=== PATIENT | male | born 1960 | race Caucasian/White ===

== ENCOUNTER 2018-04-18 19:13 | Emergency (ER) | payer MEDICAID ==
[~2018-04-18] VITALS: Ht 180.3 cm; Wt 92.1 kg
[~2018-04-18 19:13] MED LIST: ASPI325 PO; FISH1000 PO; MULTIVITAMIN PO
== END 2018-04-18 19:52 | disposition home or self-care (01) ==
LOC: ER 19:13
DX: M25.561 Pain in right knee (principal); Z79.2 Long term (current) use of antibiotics; Z79.899 Other long term (current) drug therapy
CPT/HCPCS: 99282

== ENCOUNTER → 2022-06-14 | Outpatient (CLI) | payer BC | END | disposition home or self-care (01) | LOC: PLD 12:12 → LAB SHORT 12:12 | DX: L82.1 Other seborrheic keratosis (principal) | CPT/HCPCS: 88305 ==

== ENCOUNTER → 2023-01-30 | Outpatient (CLI) | payer BC ==
[2023-01-30 09:19] LABS: BASOPHILS ABSOLUTE AUTO 0.03 K/mm3 (0.00-0.23); BASOPHILS PERCENT AUTO 0 % (0-2); EOSINOPHILS ABSOLUTE AUTO 0.11 K/mm3 (0.00-0.68); EOSINOPHILS PERCENT AUTO 1 % (0-6); Hematocrit 50.7 % (37.0-53.0); Hemoglobin 17.1 g/dL (13.5-17.5); IMMATURE GRAN ABSOLUTE AUTO 0.04 K/mm3 (0.00-0.10); IMMATURE GRAN PERCENT AUTO 0 % (0-1); LYMPHOCYTES ABSOLUTE AUTO 1.78 K/mm3 (0.84-5.20); LYMPHOCYTES PERCENT AUTO 17 % (21-46); MONOCYTES ABSOLUTE AUTO 0.77 K/mm3 (0.16-1.47); MONOCYTES PERCENT AUTO 7 % (4-13); Mean Corpuscular HGB 30.1 pg (26.0-34.0); Mean Corpuscular HGB Conc 33.7 g/dL (31.5-36.5); Mean Corpuscular Volume 89 fL (80-100); Mean Platelet Volume 11.1 fL (9.1-12.4); NEUTROPHILS ABSOLUTE AUTO 7.78 K/mm3 (1.96-9.15); NEUTROPHILS PERCENT AUTO 74 % (41-73); Platelet Count 248 K/mm3 (150-400); RDW Coefficient Variation 13.3 % (11.7-14.2); RDW Standard Deviation 42.8 fL (35.1-46.3); Red Blood Cell Count 5.69 M/mm3 (4.30-5.90); White Blood Cell Count 10.51 K/mm3 (4.00-11.30)
[2023-01-30 09:36] LABS: Albumin, Blood 3.8 g/dL (3.4-5.0); Albumin/Globulin Ratio 1.1 (0.8-1.8); Bilirubin, Total 0.9 mg/dL (0.1-1.0); Bun/Creatinine Ratio 8.7 (12.0-20.0); Calcium, Blood 9.5 mg/dL (8.5-10.1); Creatinine, Blood 1.5 mg/dL (0.60-1.20); Globulin, Blood 3.5 g/dL (2.2-4.0); Potassium, Blood 4.3 mmol/L (3.5-5.5); Total Protein, Blood 7.3 g/dL (6.4-8.2)
== END | disposition home or self-care (01) ==
LOC: LAB SHORT 09:11 → LAB 09:11
PROVIDERS: Physician Assistant
DX: R07.9 Chest pain, unspecified (principal)
CPT/HCPCS: 80053; 83690; 84484; 85025; 85379

== ENCOUNTER → 2023-01-31 | Outpatient (CLI) | payer BC | END | disposition home or self-care (01) | LOC: LAB 10:52 → LAB SHORT 10:52 | DX: R07.9 Chest pain, unspecified (principal) | CPT/HCPCS: 84484 ==

== ENCOUNTER 2024-10-05 00:31 | Inpatient (IN) | payer SELFPAY ==
[~2024-10-05] VITALS: Ht 180.3 cm; Wt 99.8 kg
[2024-10-05] MEDS ORDERED: Aspirin 325 MG Tab PO ONE (00:55)
[2024-10-05] MEDS ORDERED: Ondansetron HCl 2 MG / ML 2ML Vial ONE (00:55)
[2024-10-05 01:04] LABS: BASOPHILS ABSOLUTE AUTO 0.05 K/mm3 (0.00-0.23); BASOPHILS PERCENT AUTO 0 % (0-2); EOSINOPHILS ABSOLUTE AUTO 0.13 K/mm3 (0.00-0.68); EOSINOPHILS PERCENT AUTO 1 % (0-6); Hematocrit 44.8 % (37.0-53.0); IMMATURE GRAN ABSOLUTE AUTO 0.08 K/mm3 (0.00-0.10); IMMATURE GRAN PERCENT AUTO 1 % (0-1); LYMPHOCYTES PERCENT AUTO 13 % (21-46); MONOCYTES ABSOLUTE AUTO 0.94 K/mm3 (0.16-1.47); MONOCYTES PERCENT AUTO 8 % (4-13); Mean Corpuscular HGB 29.5 pg (26.0-34.0); Mean Corpuscular HGB Conc 33.5 g/dL (31.5-36.5); Mean Corpuscular Volume 88 fL (80-100); Mean Platelet Volume 10.9 fL (9.1-12.4); NEUTROPHILS ABSOLUTE AUTO 8.92 K/mm3 (1.96-9.15); NEUTROPHILS PERCENT AUTO 77 % (41-73); Platelet Count 257 K/mm3 (150-400); RDW Coefficient Variation 13.2 % (11.7-14.2); RDW Standard Deviation 42.7 fL (35.1-46.3); Red Blood Cell Count 5.09 M/mm3 (4.30-5.90); White Blood Cell Count 11.62 K/mm3 (4.00-11.30)
[2024-10-05] MEDS ORDERED: Ondansetron HCl 2 MG / ML 2ML Vial IV ONE (01:05)
[2024-10-05] MEDS ORDERED: FentaNYL Citrate 50 MCG/ML 2 ML Injection IV ONE (01:10)
[2024-10-05 01:23] LABS: Albumin, Blood 3.5 g/dL (3.4-5.0); Albumin/Globulin Ratio 1.2 (0.8-1.8); Bilirubin, Total 0.3 mg/dL (0.1-1.0); Bun/Creatinine Ratio 9.5 (12.0-20.0); Calcium, Blood 8.7 mg/dL (8.5-10.1); Creatinine, Blood 1.26 mg/dL (0.60-1.20); Potassium, Blood 3.4 mmol/L (3.5-5.5); Total Protein, Blood 6.5 g/dL (6.4-8.2)
[2024-10-05] MEDS ORDERED: HYDROmorphone HCl/Pf 1MG SYR IV ONE ×2 (02:00→05:30)
[2024-10-05] MEDS ORDERED: MetroNIDAZOLE 500MG/NS 100 ml 100 ML IV ONE (05:30)
[2024-10-05] MEDS ORDERED: CefTRIAXone Sodium 1,000 MG in NS 50 ML IV ONE (05:30)
[2024-10-05] MEDS ORDERED: Naloxone HCl 0.4MG / ML 1ML Vial IV PRN (05:45)
[2024-10-05] MEDS ORDERED: HYDROmorphone HCl/Pf 1MG SYR IV PRN (05:45)
[2024-10-05] MEDS ORDERED: OxyCODONE HCL 5 MG TAB PO PRN (05:45)
[2024-10-05] MEDS ORDERED: FLU VACC TS2024-25(6MOS UP)/PF 45 MCG/0.5 ML SYRINGE IM ONE (05:45)
[2024-10-05] MEDS ORDERED: Ondansetron HCl 2 MG / ML 2ML Vial IV PRN (05:45)
[2024-10-05] MEDS ORDERED: Acetaminophen 325 MG TABLET PO PRN (05:50)
[2024-10-05] MEDS ORDERED: NS 1,000 ML IV SCH (06:00)
[2024-10-05] MEDS ORDERED: Potassium Chl 20MEQ/Water100ML 100 ML IV SCH (07:15)
[2024-10-05 08:02] VITALS: BP 176/94
[2024-10-05] MEDS ORDERED: Docusate Sodium 100 MG Cap PO SCH (09:00)
[2024-10-05] MEDS ORDERED: Lactobacil 2-S.Thermo-Bifido 1 1 Cap PO SCH (09:00)
[2024-10-05 10:55] VITALS: BP 150/75
[2024-10-05 14:41] VITALS: BP 168/90
[2024-10-05] MEDS ORDERED: MetroNIDAZOLE 500MG/NS 100 ml 100 ML IV SCH (16:00)
--- NOTE | 2024-10-05 17:17 | NUR ---
SHIFT SUMMARY POSSIBLE SURGERY TOMORROW. PT IS TOLERATING A CLEAR LIQUID DIET. PAIN MANAGED WITH DILAUDID. VSS, PT WAS HYPERTENSIVE THIS MORNING BUT BP HAS NOW IMPROVED. PT INDEPENDENT IN THE ROOM. HE USES HIS CALL LIGHT APPROPRIATELY.
[2024-10-05] MEDS ORDERED: NEBI5 PO (18:22)
[2024-10-05] MEDS ORDERED: OMEP20ER PO (18:24)
[2024-10-05] MEDS ORDERED: Famotidine 20 MG Tab PO PRN (18:30)
--- NOTE | 2024-10-05 18:30 | NUR ---
PAIN, NAUSEA, HOME MEDS PT REPORTED INCREASED PAIN, NAUSEA AND INDIGESTION AFTER CONSUMING A CLEAR LIQUID DINNER. PT EDUCATED THAT PO INTAKE CAN INCREASE THESE ISSUES WITH ACUTE CHOLECYSTITIS. PT ALSO REPORTED HE DID NOT TAKE HIS BYSTOLIC THIS AM OR HIS PRILOSEC. MEDICATIONS AND HOME DOSAGES ADDED TO MED REC AND DR. VERDUGO NOTIFIED OF SYMPTOMS AND NEED TO RESTART HOME MEDS. HOME MEDICATIONS RESTARTED PER DR. VERDUGO. PEPCID ORDERED PRN. PT GIVEN ZOFRAN AND TYLENOL WHICH IMPROVED NAUSEA AND PAIN. BEDSIDE REPORT GIVEN AND NOC RN NOTIFIED THAT DR. VERDUGO ORDERED PEPCID FOR INDEGESTIONG BUT PHARMACY STILL NEEDED TO APPROVE THE MEDICATION.
[2024-10-05 19:21] VITALS: BP 160/81
[2024-10-05] MEDS ORDERED: Carvedilol 3.125 MG Tab PO SCH (21:00)
[2024-10-06] VITALS (11 sets, daily range): BP systolic 118–155; BP diastolic 75–92
--- NOTE | 2024-10-06 04:42 | NUR ---
NOC SUMMARY- PT HAS BEEN NPO SINCE MIDNIGHT. PT HAS RESTED QUIETLY THROUGHOUT SHIFT. PT DENIES PAIN/ DISCOMFORT OR N/V. CALL LIGHT IN REACH.
[2024-10-06] MEDS ORDERED: Omeprazole 20 MG CapCR PO SCH (06:00)
[2024-10-06] MEDS ORDERED: CefTRIAXone Sodium 1,000 MG in NS 100 ML IV SCH (06:00)
[2024-10-06 06:56] LABS: BASOPHILS ABSOLUTE AUTO 0.04 K/mm3 (0.00-0.23); BASOPHILS PERCENT AUTO 0 % (0-2); EOSINOPHILS ABSOLUTE AUTO 0.13 K/mm3 (0.00-0.68); EOSINOPHILS PERCENT AUTO 1 % (0-6); Hematocrit 48.1 % (37.0-53.0); Hemoglobin 16.2 g/dL (13.5-17.5); IMMATURE GRAN ABSOLUTE AUTO 0.05 K/mm3 (0.00-0.10); IMMATURE GRAN PERCENT AUTO 0 % (0-1); LYMPHOCYTES ABSOLUTE AUTO 1.37 K/mm3 (0.84-5.20); LYMPHOCYTES PERCENT AUTO 10 % (21-46); MONOCYTES PERCENT AUTO 10 % (4-13); Mean Corpuscular HGB 29.8 pg (26.0-34.0); Mean Corpuscular HGB Conc 33.7 g/dL (31.5-36.5); Mean Corpuscular Volume 89 fL (80-100); Mean Platelet Volume 10.8 fL (9.1-12.4); NEUTROPHILS ABSOLUTE AUTO 10.83 K/mm3 (1.96-9.15); NEUTROPHILS PERCENT AUTO 79 % (41-73); Platelet Count 222 K/mm3 (150-400); RDW Coefficient Variation 13.4 % (11.7-14.2); RDW Standard Deviation 43.7 fL (35.1-46.3); Red Blood Cell Count 5.43 M/mm3 (4.30-5.90); White Blood Cell Count 13.72 K/mm3 (4.00-11.30)
[2024-10-06 07:19] LABS: Albumin, Blood 3.2 g/dL (3.4-5.0); Bilirubin, Total 1.3 mg/dL (0.1-1.0); Bun/Creatinine Ratio 10.3 (12.0-20.0); Calcium, Blood 8.6 mg/dL (8.5-10.1); Creatinine, Blood 1.16 mg/dL (0.60-1.20); Globulin, Blood 3.3 g/dL (2.2-4.0); Magnesium, Blood 1.8 mg/dL (1.6-2.4); Potassium, Blood 3.9 mmol/L (3.5-5.5); Total Protein, Blood 6.5 g/dL (6.4-8.2)
--- NOTE | 2024-10-06 09:19 | NUR ---
MORNING NOTE THIS RN ASSUMED CARE AT APPROX 0715. PATIENT ALERT AND ORIENTED X4. COMMUNICATES NEEDS EFFECTIVELY. INDPENDENT IN ROOM. SBP 150s THIS MORNING. HX OF HTN - HOME DOES OF COREG ADMINISTERED PER EMAR. ON ROOM AIR, SATs >90%. RR EVEN, UNLABORED. NPO SINCE MIDNIGHT FOR BIBI REMOVAL - MILD ABD DISTENTION, DENIES N/V, HYPOACTIVE BOWEL TONES, REPORTS PAIN TOLERABLE. DENIES FLATULENCE. IVF INFUSING PER EMAR. SURGICAL INFECTION PREVENTION PERFORMED THIS MORNING. DENIES NEEDS AT THIS TIME. CALL LIGHT IN REACH.
[2024-10-06] MEDS ORDERED: Lactated Ringer's 1,000 ML IV SCH ×2 (11:10→11:50)
[2024-10-06] MEDS ORDERED: Indocyanine Green 25 MG Vial IV ONE (12:00)
--- NOTE | 2024-10-06 12:05 | NUR ---
PATIENT TRANSFERRED OFF UNIT FOR PROCEDURE
[2024-10-06] MEDS ORDERED: Acetaminophen 500 MG Tab PO SCH (12:20)
[2024-10-06] MEDS ORDERED: Bupivacaine 0.5% HCl 5 MG/ML 30MLVIAL ONE (12:22)
--- NOTE | 2024-10-06 12:23 | NUR ---
PT TO DAY SURGERY WITH 18G IV IN RIGHT AC
[2024-10-06] MEDS ORDERED: Lidocaine HCl 2% 20 ML MDV ONE (12:53)
[2024-10-06] MEDS ORDERED: Ondansetron HCl 2 MG / ML 2ML Vial ONE (12:53)
[2024-10-06] MEDS ORDERED: Metoclopramide HCl 5MG / ML 2ML Vial ONE (12:53)
[2024-10-06] MEDS ORDERED: propofoL 20 ML IV ONE (12:54)
[2024-10-06] MEDS ORDERED: FentaNYL Citrate 50 MCG/ML 2 ML Injection ONE (12:54)
[2024-10-06] MEDS ORDERED: Sugammadex Sodium 200 MG/2ML SDV (100 MG/ML) ONE (13:02)
[2024-10-06] MEDS ORDERED: Magnesium Sulfate 500 MG / ML 2ML Vial IV SCH (13:10)
--- NOTE | 2024-10-06 16:10 | NUR ---
ARRIVAL TO UNIT PATIENT RETURNED TO UNIT AT APPROX 1600. PATIENT ALERT AND ORIENTED X4, ABLE TO TRANSFER HIMSELF FROM [facility] TO BED. S/P LAP BIBI WITH X4 SITES - C/D/I. DENIES PAIN. TOLERATING PO INTAKE. VSS. LUNG SOUNDS CLEAR T/O. CALL LIGHT IN REACH.
[2024-10-06] MEDS ORDERED: ACET325 PO (17:04)
[2024-10-06] MEDS ORDERED: OXAYDO5 M4 PO (17:05)
[2024-10-06] MEDS ORDERED: DOCU100 PO (17:05)
[2024-10-06] MEDS ORDERED: AMOCLA875 PO (17:06)
[2024-10-06] MEDS ORDERED: VISBIOME 112.51 EACH PO (17:06)
--- NOTE | 2024-10-06 17:26 | NUR ---
DISCHARGE NOTE NO ACUTE CHANGES SINCE PREVIOUS DOCUMENTATION. PATIENT REMAINS ALERT AND ORIENTED X4 - REQUESTING TO DC HOME TODAY. MD VERDUGO CONTACTED - DC HOME ORDERED. PATIENT CLEAR TO DC PER MD BORGES. VSS. X4 LAP SITES C/D/I. DENIES PAIN. TOLERATING PO INTAKE. AMBULATING IN ROOM W/O DIFFICULTY. VOIDING. IV REMOVED. DC EDUCATION PROVIDED BY MANAGER OF [employer]ATIVE SERVICES ERIC. PRESENT AT BEDSIDE DURING EDUCATION. WHEELCHAIR TRANSFER OFFERED - PATIENT DECLINED. PATIENT AMBULATED OFF UNIT W/ AT APPROX 1720. PERSONAL BELONGINGS WITH PATIENT.
== END 2024-10-06 17:30 | disposition home or self-care (01) | DRG 419 ==
LOC: ER 00:31 → SURS 05:41
PROVIDERS: Student in an Organized Health Care Education/Training Program; Surgery; ADMIT Student in an Organized Health Care Education/Training Program
PROC: 0FT44ZZ Resection of Gallbladder, Percutaneous Endoscopic Approach (ICD-10-PCS; principal; 2024-10-06 13:00)
DX: K80.00 Calculus of gallbladder with acute cholecystitis without obstruction (principal); K82.A1 Gangrene of gallbladder in cholecystitis; N18.2 Chronic kidney disease, stage 2 (mild); E87.6 Hypokalemia; Z86.79 Personal history of other diseases of the circulatory system; Z79.899 Other long term (current) drug therapy; Z79.82 Long term (current) use of aspirin; Z87.19 Personal history of other diseases of the digestive system
CPT/HCPCS: 36415; 71045; 71275; 74177; 76705; 80053; 82947; 83690; 83735; 84484; 85025; 93005; 93010; 96374-59; 96375-59; 99285-25; A9270; J0696; J1171; J2405; J2704; J2765; J3010; J3480; J7030; J7120